=== PATIENT | female | born 1985 | race Caucasian/White ===

== ENCOUNTER 2021-08-22 11:27 | Outpatient (CLI) | payer BC, SELFPAY ==
[2021-08-22 13:33] LABS: Hematocrit 41.9 % (37-47); Hemoglobin 13.7 g/dL (12.0-15.0); Mean Corp Hgb Conc 32.7 g/dL (32-36); Mean Corpuscular Hgb 30.3 pg (27.0-32.0); Mean Corpuscular Volume 92.7 fL (81-99); Mean Platelet Vol. 10.3 fl (6.2-12.0); Platelet Count 294 K/mm3 (150-450); RBC Distribution Width CV 11.9 % (11.6-14.6); RBC Distribution Width SD 40.9 fl (35.1-43.9); Red Blood Count 4.52 M/mm3 (4.2-5.4); White Blood Count 8.9 K/mm3 (4.4-11.0)
[2021-08-22 13:44] LABS: hCG Titer Quant., Serum < 1 mIU/mL (1-3)
[2021-08-22 13:49] LABS: Estradiol 103.2 pg/mL; Follicle Stimulating Hormone 2.5 mIU/mL; Luteinizing Hormone 6.1 mIU/mL; T4 Free Direct 0.91 ng/dL (0.76-1.46); Thyroid Stim Hormone (TSH) 2.63 uIU/mL (0.358-3.74)
[2021-08-25 09:25] LABS: Testosterone Free 1.8 pg/mL (0.0-4.2)
[2021-08-30 13:39] LABS: HPV APTIMA, High Risk Negative (Negative)
== END 2021-08-22 23:59 | disposition home or self-care (01) ==
LOC: WOBLAB 11:30
PROVIDERS: Visit Provider Obstetrics & Gynecology
DX: N93.9 Abnormal uterine and vaginal bleeding, unspecified (principal); Z12.4 Encounter for screening for malignant neoplasm of cervix
CPT/HCPCS: 36415; 82670; 83001; 83002; 84402; 84439; 84443; 84702; 85027; 86900; 86901; 87624; 88175; G0145

== ENCOUNTER → 2022-03-08 | Outpatient (CLI) | payer BC, SELFPAY ==
[2022-03-08 13:54] LABS: Absolute Lymphocyte Count 3.13 X10^3/uL (0.83-4.51); Absolute Neutrophil Count 4.2 X10^3/uL (2.0-7.7); Basophil# 0.05 X10^3/uL; Basophil% 0.6 % (0-1); Eosinophil# 0.03 X10^3/uL; Eosinophils% 0.4 % (0-5); Hematocrit 39.4 % (37-47); Hemoglobin 13.6 g/dL (12.0-15.0); Lymphocyte # 3.13 X10^3/ul (0.83-4.51); Lymphocyte % 40.2 % (19-41); Mean Corp Hgb Conc 34.5 g/dL (32-36); Mean Corpuscular Volume 89.7 fL (81-99); Monocyte# 0.39 X10^3/uL; NRBC Flagged by Analyzer 0 % (0-5); Neutrophil # 4.15 X10^3/uL (2.7-7.7); Neutrophil % 53.4 % (47-70); POSITIVE MORPHOLOGY YES; Platelet Count 188 K/mm3 (150-450); RBC Distribution Width CV 12.6 % (11.6-14.6); RBC Distribution Width SD 41.5 fl (35.1-43.9); Red Blood Count 4.39 M/mm3 (4.2-5.4); White Blood Count 7.8 K/mm3 (4.4-11.0)
[2022-03-08 14:02] LABS: Differential Indicated SCAN CRITERIA MET
[2022-03-08 14:32] LABS: Atypical Lymphocyte 2+ %; Platelet Estimate ADEQUATE (ADEQ); Red Cell Morphology NORM C+C NORMAL (NORM C&C)
[2022-03-08 14:41] LABS: HIV - WCH Non-Reactive (Nonreactive); Hepatitis B Surface Antigen Non-Reactive (Nonreactive); Hepatitis C Antibody Non-Reactive (Nonreactive); Rubella IgG Reactive (Nonreactive); Syphilis Antibodies Non-reactive
[2022-03-10 13:10] LABS: V-Zoster IgG (Immunity) 1362 index (Immune >165)
[2022-03-11 13:07] LABS: Chlamydia By Nucleic Acid AMP Negative (Negative)
[2022-03-12 15:27] LABS: Gonococcus By Nucleic Acid AMP Negative (Negative)
== END | disposition home or self-care (01) ==
LOC: WOBLAB 12:13
PROVIDERS: Visit Provider Student in an Organized Health Care Education/Training Program
DX: Z34.81 Encounter for supervision of other normal pregnancy, first trimester (principal)
CPT/HCPCS: 36415; 85025; 86703; 86762; 86780; 86787; 86803; 87086; 87088; 87340; 87491; 87591

== ENCOUNTER → 2022-07-06 | Outpatient (CLI) | payer BC, SELFPAY ==
[2022-07-06 10:35] LABS: Absolute Lymphocyte Count 1.09 X10^3/uL (0.83-4.51); Absolute Neutrophil Count 8.1 X10^3/uL (2.0-7.7); Basophil# 0.03 X10^3/uL; Basophil% 0.3 % (0-1); Eosinophil# 0.05 X10^3/uL; Eosinophils% 0.5 % (0-5); Hematocrit 36.8 % (37-47); Hemoglobin 12.3 g/dL (12.0-15.0); Lymphocyte # 1.09 X10^3/ul (0.83-4.51); Lymphocyte % 11.1 % (19-41); Mean Corp Hgb Conc 33.4 g/dL (32-36); Mean Corpuscular Hgb 31.6 pg (27.0-32.0); Mean Corpuscular Volume 94.6 fL (81-99); Mean Platelet Vol. 9.4 fl (6.2-12.0); Monocyte# 0.46 X10^3/uL; Monocyte% 4.7 % (0-10); NRBC Flagged by Analyzer 0 % (0-5); Neutrophil # 8.12 X10^3/uL (2.7-7.7); Neutrophil % 82.9 % (47-70); Platelet Count 240 K/mm3 (150-450); RBC Distribution Width CV 12.8 % (11.6-14.6); Red Blood Count 3.89 M/mm3 (4.2-5.4); White Blood Count 9.8 K/mm3 (4.4-11.0)
[2022-07-06 10:39] LABS: Glucose Challenge Gest 1H 50g 123 mg/dL (70-140)
== END | disposition home or self-care (01) ==
PROVIDERS: Visit Provider Obstetrics & Gynecology
DX: Z34.82 Encounter for supervision of other normal pregnancy, second trimester (principal)
CPT/HCPCS: 36415; 82950; 85025

== ENCOUNTER → 2022-09-08 | Outpatient (CLI) | payer BC, SELFPAY | END | disposition home or self-care (01) | LOC: LABSPEC 10:39 | PROVIDERS: Visit Provider Nurse Practitioner Women's Health | DX: N30.00 Acute cystitis without hematuria (principal) | CPT/HCPCS: 87086; 87088 ==

== ENCOUNTER → 2022-09-14 | Outpatient (CLI) | payer BC, SELFPAY ==
[2022-09-14 11:54] LABS: Absolute Lymphocyte Count 1.14 X10^3/uL (0.83-4.51); Absolute Neutrophil Count 8.4 X10^3/uL (2.0-7.7); Basophil# 0.02 X10^3/uL; Basophil% 0.2 % (0-1); Eosinophil# 0.07 X10^3/uL; Eosinophils% 0.7 % (0-5); Hematocrit 38.5 % (37-47); Hemoglobin 12.5 g/dL (12.0-15.0); Lymphocyte # 1.14 X10^3/ul (0.83-4.51); Lymphocyte % 11.2 % (19-41); Mean Corp Hgb Conc 32.5 g/dL (32-36); Mean Corpuscular Hgb 30.9 pg (27.0-32.0); Mean Corpuscular Volume 95.1 fL (81-99); Mean Platelet Vol. 10.2 fl (6.2-12.0); Monocyte# 0.51 X10^3/uL; NRBC Flagged by Analyzer 0 % (0-5); Neutrophil % 82.2 % (47-70); Platelet Count 254 K/mm3 (150-450); RBC Distribution Width CV 12.5 % (11.6-14.6); RBC Distribution Width SD 43.6 fl (35.1-43.9); Red Blood Count 4.05 M/mm3 (4.2-5.4); White Blood Count 10.2 K/mm3 (4.4-11.0)
[2022-09-14 12:01] LABS: Protein:Creat Ratio 179 mg/g CRE (0-200)
[2022-09-14 12:05] LABS: ALB/GLOB Ratio 0.6 RATIO (0.9-2.4); AST(SGOT) 14 U/L (15-37); Alanine Aminotransfer ALT/SGPT 19 U/L (13-56); Albumin, Serum 2.5 g/dL (3.2-5.0); Alkaline Phosphatase 107 U/L (45-117); Anion Gap 5 (5-15); BUN 7 mg/dL (7-18); BUN/Creat Ratio 12.7 RATIO (10-20); Calcium,Total 8.6 mg/dL (8.5-10.1); Chloride 106 mmol/L (98-107); Creatinine, Serum 0.55 mg/dL (0.55-1.02); EST Glomerular Filtration Rate 134 mL/min (>60); Est Glom Filt Rate - Afr Amer 162 mL/min (>60); Globulin 4.3 g/dL (2.2-4.2); Glucose 141 mg/dL (74-106); LDH 141 U/L (84-246); Potassium 3.7 mmol/L (3.5-5.1); Protein, Total 6.8 g/dL (6.4-8.2); Sodium Level 134 mmol/L (136-145)
[2022-09-14 13:27] LABS: Syphilis Antibodies Non-reactive
== END | disposition home or self-care (01) ==
PROVIDERS: PCP Nurse Practitioner Family; Visit Provider Obstetrics & Gynecology
DX: Z34.83 Encounter for supervision of other normal pregnancy, third trimester (principal)
CPT/HCPCS: 36415; 80053; 82570; 83615; 84156; 85025; 86780; 87086; 87088

== ENCOUNTER → 2022-09-21 | Outpatient (CLI) | payer BC, SELFPAY | END | disposition home or self-care (01) | LOC: WOBLAB 10:05 | PROVIDERS: PCP Nurse Practitioner Family; Visit Provider Obstetrics & Gynecology | DX: Z36.85 Encounter for antenatal screening for Streptococcus B (principal) | CPT/HCPCS: 87081 ==

== ENCOUNTER 2022-10-04 12:45 | Inpatient (IN) | payer BC, SELFPAY ==
[2022-10-04 13:42] VITALS: BP 114/83; PULSE 101; PULSE 106; TEMP 36.6; O2SAT 98
[2022-10-04 13:47] LABS: Absolute Lymphocyte Count 1.26 X10^3/uL (0.83-4.51); Absolute Neutrophil Count 9.7 X10^3/uL (2.0-7.7); Basophil# 0.02 X10^3/uL; Basophil% 0.2 % (0-1); Eosinophil# 0.07 X10^3/uL; Eosinophils% 0.6 % (0-5); Hematocrit 37.9 % (37-47); Hemoglobin 12.6 g/dL (12.0-15.0); Lymphocyte # 1.26 X10^3/ul (0.83-4.51); Lymphocyte % 10.8 % (19-41); Mean Corp Hgb Conc 33.2 g/dL (32-36); Mean Corpuscular Hgb 30.9 pg (27.0-32.0); Mean Corpuscular Volume 92.9 fL (81-99); Mean Platelet Vol. 9.9 fl (6.2-12.0); Monocyte# 0.61 X10^3/uL; Monocyte% 5.2 % (0-10); NRBC Flagged by Analyzer 0 % (0-5); Neutrophil # 9.71 X10^3/uL (2.7-7.7); Neutrophil % 82.8 % (47-70); Platelet Count 254 K/mm3 (150-450); RBC Distribution Width CV 12.2 % (11.6-14.6); Red Blood Count 4.08 M/mm3 (4.2-5.4); White Blood Count 11.7 K/mm3 (4.4-11.0)
[2022-10-04 13:49] VITALS: BMI 39.6
--- NOTE | 2022-10-04 14:04 | PCM.HP.BLA ---
History and Physical Date of Admission: 10/04/22 Chief complaint: Oligohydramnios History present illness: 36-year-old G2, P0 at 38 weeks and 5 days with LATASHA 10/13/2022 arrives from office with oligohydramnios for induction of labor. Denies headache, visual changes, chest pain, shortness of breath, nausea vomit, right upper quadrant pain. Patient states good movement. is complicated by BMI 39, oligohydramnios Obstetric history: G1: SAB G2: Current Past medical history: None Medications: vitamin Past surgical history: HSG, wisdom teeth extraction Allergies: Azithromycin Social history: Denies smoking, alcohol use, drug use Family history: Denies history DVT or PE Review of systems: Besides above pertinent positives a full review of systems was performed and found to be negative Physical exam: Vitals: Blood pressure 114/83 pulse 101 temperature 97.9 ?F SPO2 90% on room air General: Normal-appearing no acute distress HEENT: Normocephalic/atraumatic no cervical lymphadenopathy Cardiac/respiratory: No use accessory muscles, nonlabored breathing Abdomen: Soft, nontender, gravid Extremities: No peripheral edema normal peripheral pulses Psych: Normal affect normal demeanor nonpressured speech Labs: White blood cell count 11.7 hemoglobin 12.6 hematocrit 37.9% platelets 254 Assessment and plan: 36-year-old G2, P0 at 38 weeks and 5 days with oligohydramnios for induction of labor Admit labor and delivery CEFM GBS negative Induction via Cytotec 25 mcg vaginally every 4 hours
[2022-10-04 14:31] LABS: Syphilis Antibodies Non-reactive
[2022-10-04] MEDS: miSOPROStol 25 MCG TABLET VAGINAL ×2 (16:06→21:00)
[2022-10-04 16:25] VITALS: BP 114/63; PULSE 84; TEMP 36.4; O2SAT 98
--- NOTE | 2022-10-04 18:10 | PCM.PN.OB ---
Subjective Subjective Resting comfortably in bed no complaint Objective Data Objective Data Vital Signs: Vital Signs Temp Pulse BP Pulse Ox 97.5 F L 84 114/63 98 10/04/22 16:25 10/04/22 16:25 10/04/22 16:25 10/04/22 16:25 Weight: 253 lb Body Mass Index (BMI) 39.6 Lab / Micro Data Result Diagrams: 10/04/22 13:35 Labs: Laboratory Results - last 24 hr 10/04/22 13:35: WBC 11.7 H, RBC 4.08 L, Hgb 12.6, Hct 37.9, MCV 92.9, MCH 30.9, MCHC 33.2, RDW Std Deviation 42.0, RDW Coeff of Naresh 12.2, Plt Count 254, MPV 9.9, Immature Gran % (Auto) 0.400, Neut % (Auto) 82.8 H, Lymph % (Auto) 10.8 L, [place] % (Auto) 5.2, Eos % (Auto) 0.6, Baso % (Auto) 0.2, Absolute Neuts (auto) 9.7 H, Absolute Lymphs (auto) 1.26, Nucleated RBC % 0 10/04/22 13:35: Blood Type A POSITIVE, Antibody Screen NEGATIVE 10/04/22 13:35: Syphilis Total Ab Non-reactive Physical Exam Const alert, oriented x3, no apparent distress, average body habitus, healthy appearing and well nourished HEENT normocephalic and moist oral mucous membranes Eyes PERRL Neck full ROM Resp normal respiratory effort, no retractions and no use of accessory muscles Neuro moves all extremities and no focal motor deficits Psych mental status grossly normal, affect normal, speech normal and activity/motor behavior normal Assessment & Plan (1) : PLAN: Patient seen and examined. Resting comfortably in bed. No questions or concerns from patient and partner. Approached by nursing and informed of prolonged decelerations 3 to 4 minutes about 2 hours ago. Reviewed heart rate tracing and baby recovered well and heart tracings now reassuring. We will continue current management
[2022-10-04 20:05] VITALS: BP 117/69; PULSE 72; TEMP 36.5
[2022-10-04 21:16] VITALS: BP 105/60; PULSE 79
[2022-10-04 21:28] VITALS: PULSE 75; O2SAT 96
[2022-10-04] MEDS: Acetaminophen 500 MG Tablet PO (22:51)
[2022-10-04] MEDS: LACTATED RINGERS 500 ML 999 ML IV (23:51)
[2022-10-04] MEDS: fentaNYL 100 MCG/2 ML Ampul IV (23:55)
[2022-10-05] VITALS (57 sets, daily range): BP systolic 97–141; BP diastolic 59–107; PULSE 62–99; RESP 16–20; TEMP 36.2–37.1; O2SAT 88–100
[2022-10-05] MEDS: 0.9% Saline Lock 10 ML Syringe IV ×8 (00:11→23:09)
[2022-10-05] MEDS: Lactated Ringers 1,000 ML 200 ML IV (00:30)
[2022-10-05] MEDS: Ondansetron 4 MG/2 ML Vial IV (01:05)
[2022-10-05] MEDS: fentaNYL-bupivacaine (epidural) 100 ML BAG EPIDURAL (01:51)
[2022-10-05] MEDS: LACTATED RINGERS 500 ML 999 ML IV (02:14)
--- NOTE | 2022-10-05 03:35 | PCM.PN.OB ---
Subjective Subjective Patient now comfortable with epidural. Overall no complaints Objective Data Objective Data Vital Signs: Vital Signs Temp Pulse Resp BP Pulse Ox O2 Del Method O2 Flow Rate 97.9 F 68 16 111/65 100 Non-Rebreather 10 10/05/22 02:39 10/05/22 03:32 10/05/22 02:39 10/05/22 03:32 10/05/22 03:17 10/05/22 02:39 10/05/22 02:39 Oxygen Flow Rate (L/min) 10 Oxygen Delivery Method Non-Rebreather Weight: 253 lb Body Mass Index (BMI) 39.6 Intake & Output: Intake and Output for Last 24 Hours 10/03/22 10/04/22 10/05/22 23:59 23:59 23:59 Intake Total 500 / 500 Output Total 1150 / 1150 Balance -1150 / -1150 500 / 500 Lab / Micro Data Result Diagrams: 10/04/22 13:35 Labs: Laboratory Results - last 24 hr 10/04/22 13:35: WBC 11.7 H, RBC 4.08 L, Hgb 12.6, Hct 37.9, MCV 92.9, MCH 30.9, MCHC 33.2, RDW Std Deviation 42.0, RDW Coeff of Naresh 12.2, Plt Count 254, MPV 9.9, Immature Gran % (Auto) 0.400, Neut % (Auto) 82.8 H, Lymph % (Auto) 10.8 L, [place] % (Auto) 5.2, Eos % (Auto) 0.6, Baso % (Auto) 0.2, Absolute Neuts (auto) 9.7 H, Absolute Lymphs (auto) 1.26, Nucleated RBC % 0 10/04/22 13:35: Blood Type A POSITIVE, Antibody Screen NEGATIVE 10/04/22 13:35: Syphilis Total Ab Non-reactive Physical Exam Const alert, oriented x3, average body habitus, healthy appearing and well nourished HEENT normocephalic and moist oral mucous membranes Eyes PERRL Neck full ROM Resp normal respiratory effort, no retractions and no use of accessory muscles Psych mental status grossly normal, affect normal, speech normal and activity/motor behavior normal Assessment & Plan (1) : PLAN: Initially called by nursing with recurrent decelerations after epidural placement. Given instructions to nursing if minimal variability with recurrent decelerations to call back in 20 to 30 minutes and will need section, but if moderate variability with recurrent decelerations okay for maneuvers O2 and treatment for up to 1 hour. Nursing called back within 20 minutes with recurrent decelerations and minimal variability reviewed tracing with nursing signs of moderate variability, instructed to transition hands and knees, given orders for preparation for antibiotics 3 g Ancef if patient needs section must hold azithromycin with allergy. Patient seen and examined now on hands and knees moderate variability with recurrent decelerations. Educated patient and partner on findings. Observed heart rate tracing in the room with patient now with moderate variability until the 1 hour stacie. During evaluation patient is abdomen palpated soft. Cervical exam per nursing 3 cm. Unresolved heart rate tracing with recurrent decelerations for 1 hour, discussed recommendation with patient and partner for primary section for nonreassuring heart tones. Educated patient on risk benefits alternatives include but are not limited to visceral or vascular injury, prolonged hospitalization, blood loss need for transfusion, reoperation. Patient seen understanding wish to proceed with primary section. All questions were answered and consent was signed. Educated patient and partner on procedure and recovery. Patient and partner state understanding. For primary section for nonreassuring heart tones now. Ancef 3 g, will hold azithromycin with allergies. [employer] ALIGNER, anesthesia, head of product called
[2022-10-05] MEDS: Sodium Citrate/Citric Acid 30 ML UDC PO (03:39)
--- NOTE | 2022-10-05 04:41 | OP.PCM_ITS ---
Details Operative Information Date of Procedure: 10/05/22 Pre-Operative Diagnosis: Term, oligohydramnios, nonreassuring heart tones Post-Operative Diagnosis: Term, oligohydramnios, nonreassuring heart tones bacteriology teacher #1: Stacy Palma Findings Description of Procedure: Procedure: Primary low transverse section Via Pfannenstiel incision Surgeon: Jake Hardwick MD Anesthesia: Epidural EBL: 800 cc Urine output: 600 cc IV fluids: 300 cc Complications: None Specimen: None Findings: Female in vertex position Apgars 8/9. Normal uterus, tubes, and ovaries. Consent: Patient arrived for induction of labor for oligohydramnios later found to have nonreassuring heart tones elected for primary section Via Pfannenstiel incision. Patient understands risk of the procedure include but are not limited to visceral or vascular injury, prolonged hospitalization, blood loss need for transfusion, reoperation. Patient state understanding wish to proceed. All questions were answered and consent was signed. Procedure: Patient was brought back to the OR where epidural anesthesia was found be adequate. 3 g of Ancef were given for infection prophylaxis. Patient was prepared and draped in a supine position with leftward tilt. A Pfannenstiel incision was made at the skin with a scalpel. The incision was carried down to the fascia with a scalpel. The fascia was excised and extended laterally. Rectus muscle was dissected in the midline down to the level of the pubic symphysis. Preperitoneal fatty tissue was noted and peritoneum was entered sharply. Peritoneum was extended superiorly and inferiorly with good visualization of bladder. Bladder blade was inserted and vesicouterine peritoneum was identified. Low transverse hysterotomy was made. Hand was placed into the incision and gentle fundal pressure was applied once the head was brought into the incision and the bladder blade was removed. Head and shoulders were delivered with ease. Cord was clamped and cut. Baby handed off to nursing. Placenta was delivered via cord traction and fundal massage. IV oxytocin was initiated in order to facilitate uterine contractions. Uterus was exteriorized and wiped out with dry laparotomy sponge in order to remove remaining placental membranes. Uterus was closed in a continuous running fashion. Good hemostasis was noted. Uterus was placed back in the abdominal cavity and the incision was reinspected, good hemostasis was noted. Fascia was closed in a continuous running fashion with PDS suture. Subcutaneous irrigation was performed and good hemostasis was noted. Skin was closed in a subcuticular fashion. All counts were correct x2. Patient tolerated procedure well and was brought to recovery in stable condition.
[2022-10-05] MEDS: Oxytocin 15 Units/NS 250ml 15 UNITS/250 ML IV.SOLN 83 UNITS IV (05:06)
[2022-10-05] MEDS: Acetaminophen 500 MG Tablet 1000 MG PO ×4 (05:34→23:08)
[2022-10-05] MEDS: Ketorolac 30 MG/ML Syringe IV ×4 (05:34→23:08)
[2022-10-05] MEDS: Lactated Ringers 1,000 ML 100 ML IV (08:20)
[2022-10-05] MEDS: DiphenhydrAMINE 50 MG/ML Syringe 25 MG IV (08:22)
[2022-10-05] MEDS: Nalbuphine 10 MG/ML Ampul 5 MG IV ×3 (10:01→20:47)
[2022-10-05] MEDS: Senna/Docusate Sodium 1 Tablet PO (10:01)
[2022-10-05] MEDS: Cefazolin 1 GM/50 ML BAG IV ×2 (12:27→20:58)
[2022-10-05] MEDS: Enoxaparin 40 MG/0.4 ML Syringe SC (17:12)
[2022-10-05] MEDS: DiphenhydrAMINE 25 MG Capsule PO (17:31)
[2022-10-06] VITALS (7 sets, daily range): BP systolic 110–137; BP diastolic 73–88; PULSE 72–90; RESP 14–20; TEMP 36–37; O2SAT 95–98
[2022-10-06] MEDS: Ondansetron 4 MG/2 ML Vial IV (03:06)
[2022-10-06] MEDS: 0.9% Saline Lock 10 ML Syringe IV ×2 (03:07→04:41)
[2022-10-06] MEDS: proCHLORPERazine 10 MG/2 ML Vial IV (04:41)
[2022-10-06] MEDS: Senna/Docusate Sodium 1 Tablet PO (04:46)
[2022-10-06] MEDS: Acetaminophen 500 MG Tablet 1000 MG PO ×3 (06:22→18:41)
[2022-10-06] MEDS: Ibuprofen 600 MG Tablet PO ×3 (06:22→18:41)
[2022-10-06 06:45] LABS: Hematocrit 37.3 % (37-47); Mean Corp Hgb Conc 32.2 g/dL (32-36); Mean Corpuscular Hgb 30.6 pg (27.0-32.0); Mean Corpuscular Volume 95.2 fL (81-99); Mean Platelet Vol. 9.7 fl (6.2-12.0); Platelet Count 219 K/mm3 (150-450); RBC Distribution Width CV 12.4 % (11.6-14.6); RBC Distribution Width SD 42.9 fl (35.1-43.9); Red Blood Count 3.92 M/mm3 (4.2-5.4); White Blood Count 13.8 K/mm3 (4.4-11.0)
--- NOTE | 2022-10-06 07:45 | NURSING ---
report given to Sonja Altamirano RN who is assuming care of pt at this time
[2022-10-06] MEDS: Enoxaparin 40 MG/0.4 ML Syringe SC (11:18)
--- NOTE | 2022-10-06 14:27 | PCM.PN.OB ---
Subjective Subjective Patient doing well without complaints. Tolerating PO. Ambulating and voiding without difficulty. feeding well. Denies chest pain, shortness of breath, calf pain/swelling, fevers, chills, lightheadedness. Objective Data Objective Data Vital Signs: Vital Signs Temp Pulse Resp BP Pulse Ox O2 Del Method O2 Flow Rate 96.8 F L 90 18 110/77 95 Room Air 10 10/06/22 08:15 10/06/22 08:15 10/06/22 08:15 10/06/22 08:15 10/06/22 08:15 10/06/22 08:15 10/05/22 02:39 Oxygen Flow Rate (L/min) 10 Oxygen Delivery Method Room Air Weight: 253 lb Body Mass Index (BMI) 39.6 Intake & Output: Intake and Output for Last 24 Hours 10/04/22 10/05/22 10/06/22 23:59 23:59 23:59 Intake Total 3163.34 / 3163.34 Output Total 1150 / 1150 2875 / 2875 Balance -1150 / -1150 288.34 / 288.34 Lab / Micro Data Result Diagrams: 10/06/22 06:35 Labs: Laboratory Results - last 24 hr 10/06/22 06:35: WBC 13.8 H, RBC 3.92 L, Hgb 12.0, Hct 37.3, MCV 95.2, MCH 30.6, MCHC 32.2, RDW Std Deviation 42.9, RDW Coeff of Naresh 12.4, Plt Count 219, MPV 9.7 ROS Constitutional Constitutional: Reports systems reviewed and no addt'l complaints, except as documented Cardiovascular Cardiovascular: Reports systems reviewed and no addt'l complaints, except as documented Respiratory/Chest Respiratory/Chest: Reports systems reviewed and no addt'l complaints, except as documented Gastrointestinal Gastrointestinal: Reports systems reviewed and no addt'l complaints, except as documented Physical Exam Const alert, oriented x3 and no apparent distress HEENT Head and Scalp: atraumatic Resp normal respiratory effort GI soft to palpation and non-tender Inspection: incision intact, healing well and drainage (none) Bimanual Exam - Vag & Uterus: uterus non-tender Uterus Palpation: uterus fundus firm (below Umbilicus) Assessment & Plan (1) : (2) delivery delivered: PLAN: Plan s/p LTCS PPD # 1 1. routine post care 2. breast feeding- support given 3. rh positive 4. rubella immune
[2022-10-07] MEDS: Acetaminophen 500 MG Tablet 1000 MG PO ×4 (00:26→18:53)
[2022-10-07] MEDS: Ibuprofen 600 MG Tablet PO ×4 (00:27→18:53)
[2022-10-07 01:30] VITALS: BP 122/77; PULSE 79; RESP 16; TEMP 36.3; O2SAT 97
--- NOTE | 2022-10-07 08:17 | PCM.PN.OB ---
Subjective Subjective Patient doing well without complaints. Tolerating PO. Ambulating and voiding without difficulty. feeding well. Denies chest pain, shortness of breath, calf pain/swelling, fevers, chills, lightheadedness. Objective Data Objective Data Vital Signs: Vital Signs Temp Pulse Resp BP Pulse Ox O2 Del Method O2 Flow Rate 97.3 F L 79 16 122/77 H 97 Room Air 10 10/07/22 01:30 10/07/22 01:30 10/07/22 01:30 10/07/22 01:30 10/07/22 01:30 10/07/22 01:30 10/05/22 02:39 Oxygen Flow Rate (L/min) 10 Oxygen Delivery Method Room Air Weight: 253 lb Body Mass Index (BMI) 39.6 Intake & Output: Intake and Output for Last 24 Hours 10/05/22 10/06/22 10/07/22 23:59 23:59 23:59 Intake Total 3163.34 / 3163.34 Output Total 2875 / 2875 Balance 288.34 / 288.34 Lab / Micro Data Result Diagrams: 10/06/22 06:35 ROS Constitutional Constitutional: Reports systems reviewed and no addt'l complaints, except as documented Cardiovascular Cardiovascular: Reports systems reviewed and no addt'l complaints, except as documented Respiratory/Chest Respiratory/Chest: Reports systems reviewed and no addt'l complaints, except as documented Gastrointestinal Gastrointestinal: Reports systems reviewed and no addt'l complaints, except as documented Physical Exam Const alert, oriented x3 and no apparent distress HEENT Head and Scalp: atraumatic Resp normal respiratory effort GI soft to palpation and non-tender Inspection: incision intact, healing well and drainage (none) Bimanual Exam - Vag & Uterus: uterus non-tender Uterus Palpation: uterus fundus firm (below Umbilicus) Assessment & Plan (1) : (2) delivery delivered: PLAN: Plan s/p LTCS PPD # 2 1. routine post care 2. breast feeding- support given 3. rh positive 4. rubella immune
--- NOTE | 2022-10-07 08:18 | DS.PCM_ITS ---
Providers Date of Admission: 10/04/22 Primary Care Physician: Marlen Obando LANDSCAPE ARCHITECTURE PROFESSOR-C Reason For Visit: C SECTION Diagnosis Discharge Diagnosis (1) : Status: Acute Code(s): Z34.90 - Encounter for supervision of normal , unspecified, unspecified trimester (2) delivery delivered: Status: Acute Code(s): O82 - Encounter for delivery without indication Plan s/p LTCS PPD # 2 1. routine post care 2. breast feeding- support given 3. rh positive 4. rubella immune Medications at Discharge Home Medications Prenatabs FA 1 tab PO.IVFORM DAILY 10/04/22 Hospital Course Summary of Care Provided Hospital Course: patient presented for LTCS and had an uncomplicated delivery. Postoperatively patient had return of bowel and bladder function and was ambulating well, tolerating adequate p.o., and was stable for discharge to home on postop day #2. Discharge medications naproxen and Percocet. Follow-up in office in 2 weeks for incision check in 6 weeks for visit. Routine post section diet and activity instructions. Weight / BMI Weight Weight: 253 lb Body Mass Index (BMI) 39.6 ABG / Lab / Microbiology Data Result Diagrams: 10/06/22 06:35 D/C Instructions Discharge Diet: No restrictions Discharge Activity: May Not Drive (for 2 weeks or while taking narcotic pain medications.), May Shower and May Take a Tub Bath (in 7 days) May shower in (days): 0 May resume sexual activity in: 4-6 weeks Weight Bearing Status: Full weight bearing Call your doctor if your incision/area has: Continuous Slow Oozing, Sudden Increased Bleeding, Increased Pain/ Swelling, Increased Redness and Foul Smelling Discharge Call your doctor if you observe: Fever of 101 or Higher and Using more than 1 pad per hour (for 2 hours) Suture Line Care: Avoid Pulling/Pushing and Avoid Pinching/Bending Cleanse incision/area with: Soap & Water and Keep Dressing Clean & Dry Please Follow Up With: Sridevi Julien MD When: Call [phone] to make an appointment for an incision check in 1-2 weeks. Meaningful Use Info Meaningful Use Diagnoses (Choose all that apply): None applicable Discharge Plan Admission Admit Date/Time: 10/04/22 12:45 Attending Provider: Sridevi Julien Primary Care Provider: Marlen Obando Discharge Orders/Prescriptions Prescriptions: No Action Prenatabs FA 1 tab PO.IVFORM DAILY Referrals / Follow Up: Marlen Obando, LANDSCAPE ARCHITECTURE PROFESSOR-C [Primary Care Provider] -
[2022-10-07 08:45] VITALS: BP 117/76; PULSE 83; RESP 15; TEMP 36.4; O2SAT 98
[2022-10-07] MEDS: Enoxaparin 40 MG/0.4 ML Syringe SC (11:15)
[2022-10-07] MEDS: Senna/Docusate Sodium 1 Tablet PO (11:16)
[2022-10-07 13:50] VITALS: BP 118/86; PULSE 96; RESP 16; TEMP 36.4; O2SAT 96
[2022-10-07 20:00] VITALS: BP 123/77; PULSE 80; RESP 16; TEMP 36.4
[2022-10-08] MEDS: Ibuprofen 600 MG Tablet PO ×3 (01:37→14:05)
[2022-10-08] MEDS: Acetaminophen 500 MG Tablet 1000 MG PO ×2 (01:37→07:57)
[2022-10-08 02:00] VITALS: BP 119/76; PULSE 75; RESP 16; TEMP 36.1
--- NOTE | 2022-10-08 06:10 | PCM.PN.OB ---
Subjective Subjective Patient doing well without complaints. Tolerating PO. Ambulating and voiding without difficulty. feeding well. Denies chest pain, shortness of breath, calf pain/swelling, fevers, chills, lightheadedness. Objective Data Objective Data Vital Signs: Vital Signs Temp Pulse Resp BP Pulse Ox O2 Del Method O2 Flow Rate 97.0 F L 75 16 119/76 96 Room Air 10 10/08/22 02:00 10/08/22 02:00 10/08/22 02:00 10/08/22 02:00 10/07/22 13:50 10/07/22 13:50 10/05/22 02:39 Oxygen Flow Rate (L/min) 10 Oxygen Delivery Method Room Air Weight: 253 lb Body Mass Index (BMI) 39.6 Lab / Micro Data Result Diagrams: 10/06/22 06:35 ROS Constitutional Constitutional: Reports systems reviewed and no addt'l complaints, except as documented Cardiovascular Cardiovascular: Reports systems reviewed and no addt'l complaints, except as documented Respiratory/Chest Respiratory/Chest: Reports systems reviewed and no addt'l complaints, except as documented Gastrointestinal Gastrointestinal: Reports systems reviewed and no addt'l complaints, except as documented Physical Exam Const alert, oriented x3 and no apparent distress HEENT Head and Scalp: atraumatic Resp normal respiratory effort GI soft to palpation and non-tender Inspection: incision intact, healing well and drainage (none) Bimanual Exam - Vag & Uterus: uterus non-tender Uterus Palpation: uterus fundus firm (below Umbilicus) Assessment & Plan (1) : (2) delivery delivered: PLAN: Plan s/p LTCS PPD # 3 1. routine post care 2. breast feeding- support given 3. rh positive 4. rubella immune
--- NOTE | 2022-10-08 06:10 | PCM.DC.SUM ---
Providers Date of Admission: 10/04/22 Primary Care Physician: RAMÓN CarlosC Reason For Visit: C SECTION Diagnosis Discharge Diagnosis (1) : Status: Acute Code(s): Z34.90 - Encounter for supervision of normal , unspecified, unspecified trimester (2) delivery delivered: Status: Acute Code(s): O82 - Encounter for delivery without indication Plan s/p LTCS PPD # 3 1. routine post care 2. breast feeding- support given 3. rh positive 4. rubella immune Medications at Discharge Home Medications Prenatabs FA 1 tab PO.IVFORM DAILY 10/04/22 Hospital Course Summary of Care Provided Hospital Course: patient presented for IOL secondary to oligo, and developed NRFHTs in labor and therefore underwent a LTCS and had an uncomplicated delivery. Postoperatively patient had return of bowel and bladder function and was ambulating well, tolerating adequate p.o., and was stable for discharge to home on postop day #3. Discharge medications naproxen and Percocet. Follow-up in office in 2 weeks for incision check in 6 weeks for visit. Routine post section diet and activity instructions. Weight / BMI Weight Weight: 253 lb Body Mass Index (BMI) 39.6 ABG / Lab / Microbiology Data Result Diagrams: 10/06/22 06:35 D/C Instructions Discharge Diet: No restrictions Discharge Activity: May Not Drive (for 2 weeks or while taking narcotic pain medications.), May Shower and May Take a Tub Bath (in 7 days) May shower in (days): 0 May resume sexual activity in: 4-6 weeks Weight Bearing Status: Full weight bearing Call your doctor if your incision/area has: Continuous Slow Oozing, Sudden Increased Bleeding, Increased Pain/ Swelling, Increased Redness and Foul Smelling Discharge Call your doctor if you observe: Fever of 101 or Higher and Using more than 1 pad per hour (for 2 hours) Suture Line Care: Avoid Pulling/Pushing and Avoid Pinching/Bending Cleanse incision/area with: Soap & Water and Keep Dressing Clean & Dry Please Follow Up With: Sridevi Julien MD When: Call [phone] to make an appointment for an incision check in 1-2 weeks. Meaningful Use Info Meaningful Use Diagnoses (Choose all that apply): None applicable Discharge Plan Admission Admit Date/Time: 10/04/22 12:45 Attending Provider: Sridevi Julein Primary Care Provider: Marlen Obando Discharge Orders/Prescriptions Prescriptions: No Action Prenatabs FA 1 tab PO.IVFORM DAILY Referrals / Follow Up: Marlen Obando, CARDIAC SURGEON-C [Primary Care Provider] - Disposition Disposition (needs filled in before D/C Order can be placed): Home, Self Care
[2022-10-08 08:08] VITALS: BP 123/81; PULSE 97; RESP 16; TEMP 36.4
[2022-10-08] MEDS: Enoxaparin 40 MG/0.4 ML Syringe SC (10:56)
[2022-10-08] MEDS: Senna/Docusate Sodium 1 Tablet PO (10:56)
[2022-10-08 14:07] VITALS: BP 133/80; PULSE 99; RESP 16; TEMP 36.6; O2SAT 97
== END 2022-10-08 17:10 | disposition home or self-care (01) | DRG 787 ==
PROVIDERS: Obstetrics & Gynecology; Admitting Provider Obstetrics & Gynecology; PCP Nurse Practitioner Family; Referring Provider Obstetrics & Gynecology; Visit Provider Obstetrics & Gynecology
DX: O76 Abnormality in fetal heart rate and rhythm complicating labor and delivery (principal); O41.03X0 Oligohydramnios, third trimester, not applicable or unspecified; Z37.0 Single live birth; Z3A.38 38 weeks gestation of pregnancy
CPT/HCPCS: 59025; 59050; 85025; 85027; 86780; 86850; 86900; 86901; 99221; J7120; A4216; G0378; J2405